=== PATIENT | male | born 1945 | race Two or more races ===

== ENCOUNTER 2020-12-05 07:29 | Day surgery (SDC) | payer OTHER ==
[~2020-12-05 07:29] MED LIST: ADULT LOW DOSE81 M1 PO; DULCOLAX5 MG PO; LEVO-T88 MCG PO; MONTELUKAST SOD10 MG PO; PROSCAR5 MG PO; TAMS0.4C PO
== END 2020-12-05 19:00 | disposition home or self-care (01) ==
LOC: CIR.AMB 07:29
PROVIDERS: ATTEND Colon & Rectal Surgery
DX: K64.8 Other hemorrhoids (principal); K64.4 Residual hemorrhoidal skin tags; K60.1 Chronic anal fissure; Z20.822 Contact with and (suspected) exposure to COVID-19